=== PATIENT | female | born 1935 | race Caucasian/White ===

== ENCOUNTER → 2018-03-05 | Outpatient (CLI) | payer MEDICARE | END | disposition home or self-care (01) | LOC: WOUND 09:43 | PROVIDERS: ATTEND Podiatrist Foot & Ankle Surgery | DX: S81.801A Unspecified open wound, right lower leg, initial encounter (principal); I12.9 Hypertensive chronic kidney disease with stage 1 through stage 4 chronic kidney disease, or unspecified chronic kidney disease; N18.9 Chronic kidney disease, unspecified; J44.9 Chronic obstructive pulmonary disease, unspecified; F32.9 Major depressive disorder, single episode, unspecified; I48.91 Unspecified atrial fibrillation; E78.5 Hyperlipidemia, unspecified; G47.30 Sleep apnea, unspecified; K21.9 Gastro-esophageal reflux disease without esophagitis; M19.90 Unspecified osteoarthritis, unspecified site; Z86.718 Personal history of other venous thrombosis and embolism; Z86.711 Personal history of pulmonary embolism; X58.XXXA Exposure to other specified factors, initial encounter; Y93.89 Activity, other specified; Y92.89 Other specified places as the place of occurrence of the external cause; Y99.8 Other external cause status | CPT/HCPCS: 97597; 97598; 99215 ==

== ENCOUNTER → 2018-03-09 | Outpatient (CLI) | payer MEDICARE | END | disposition home or self-care (01) | LOC: WOUND 15:21 | PROVIDERS: ATTEND Internal Medicine | DX: S81.801D Unspecified open wound, right lower leg, subsequent encounter (principal); J44.9 Chronic obstructive pulmonary disease, unspecified; K21.9 Gastro-esophageal reflux disease without esophagitis; E78.5 Hyperlipidemia, unspecified; F32.9 Major depressive disorder, single episode, unspecified; G47.30 Sleep apnea, unspecified; I48.91 Unspecified atrial fibrillation; I12.9 Hypertensive chronic kidney disease with stage 1 through stage 4 chronic kidney disease, or unspecified chronic kidney disease; N18.9 Chronic kidney disease, unspecified; Z86.718 Personal history of other venous thrombosis and embolism; Z86.711 Personal history of pulmonary embolism; X58.XXXD Exposure to other specified factors, subsequent encounter | CPT/HCPCS: 99214 ==

== ENCOUNTER → 2018-03-12 | Outpatient (CLI) | payer MEDICARE | END | disposition home or self-care (01) | LOC: WOUND 10:54 | PROVIDERS: ATTEND Podiatrist Foot & Ankle Surgery | DX: L97.213 Non-pressure chronic ulcer of right calf with necrosis of muscle (principal); I12.9 Hypertensive chronic kidney disease with stage 1 through stage 4 chronic kidney disease, or unspecified chronic kidney disease; N18.9 Chronic kidney disease, unspecified; J44.9 Chronic obstructive pulmonary disease, unspecified; K21.9 Gastro-esophageal reflux disease without esophagitis; E78.5 Hyperlipidemia, unspecified; F32.9 Major depressive disorder, single episode, unspecified; G47.30 Sleep apnea, unspecified; I48.2 Chronic atrial fibrillation; I48.1 Persistent atrial fibrillation; Z86.711 Personal history of pulmonary embolism; Z86.718 Personal history of other venous thrombosis and embolism; M19.90 Unspecified osteoarthritis, unspecified site; W19.XXXD Unspecified fall, subsequent encounter | CPT/HCPCS: 11042; 11045 ==

== ENCOUNTER → 2018-03-13 | Outpatient (CLI) | payer MEDICARE | END | disposition home or self-care (01) | LOC: WOUND 08:39 | PROVIDERS: ATTEND Family Medicine | DX: L97.213 Non-pressure chronic ulcer of right calf with necrosis of muscle (principal); J44.9 Chronic obstructive pulmonary disease, unspecified; K21.9 Gastro-esophageal reflux disease without esophagitis; E78.5 Hyperlipidemia, unspecified; F32.9 Major depressive disorder, single episode, unspecified; G47.30 Sleep apnea, unspecified; I48.91 Unspecified atrial fibrillation; I12.9 Hypertensive chronic kidney disease with stage 1 through stage 4 chronic kidney disease, or unspecified chronic kidney disease; N18.9 Chronic kidney disease, unspecified; I48.2 Chronic atrial fibrillation; Z86.718 Personal history of other venous thrombosis and embolism; Z86.711 Personal history of pulmonary embolism | CPT/HCPCS: 11043; 11046 ==

== ENCOUNTER → 2018-03-16 | Outpatient (CLI) | payer MEDICARE | END | disposition home or self-care (01) | LOC: WOUND 14:19 | PROVIDERS: ATTEND Internal Medicine | DX: L97.212 Non-pressure chronic ulcer of right calf with fat layer exposed (principal); I10 Essential (primary) hypertension; I48.1 Persistent atrial fibrillation; I48.2 Chronic atrial fibrillation; I48.91 Unspecified atrial fibrillation; E78.5 Hyperlipidemia, unspecified; G47.30 Sleep apnea, unspecified; M19.90 Unspecified osteoarthritis, unspecified site; F32.9 Major depressive disorder, single episode, unspecified; J44.9 Chronic obstructive pulmonary disease, unspecified; K21.9 Gastro-esophageal reflux disease without esophagitis; Z86.711 Personal history of pulmonary embolism; Z86.718 Personal history of other venous thrombosis and embolism | CPT/HCPCS: 99214 ==

== ENCOUNTER → 2018-03-18 | Outpatient (CLI) | payer MEDICARE | END | disposition home or self-care (01) | LOC: WOUND 13:03 | PROVIDERS: ATTEND Internal Medicine | DX: L97.212 Non-pressure chronic ulcer of right calf with fat layer exposed (principal); I12.9 Hypertensive chronic kidney disease with stage 1 through stage 4 chronic kidney disease, or unspecified chronic kidney disease; N18.9 Chronic kidney disease, unspecified; I48.2 Chronic atrial fibrillation; I48.1 Persistent atrial fibrillation; E78.5 Hyperlipidemia, unspecified; G47.30 Sleep apnea, unspecified; M19.90 Unspecified osteoarthritis, unspecified site; J44.9 Chronic obstructive pulmonary disease, unspecified; F32.9 Major depressive disorder, single episode, unspecified; K21.9 Gastro-esophageal reflux disease without esophagitis; Z86.718 Personal history of other venous thrombosis and embolism; Z86.711 Personal history of pulmonary embolism | CPT/HCPCS: 99214 ==

== ENCOUNTER → 2018-03-20 | Outpatient (CLI) | payer MEDICARE | END | disposition home or self-care (01) | LOC: WOUND 08:35 | PROVIDERS: ATTEND Family Medicine | DX: L97.212 Non-pressure chronic ulcer of right calf with fat layer exposed (principal); J44.9 Chronic obstructive pulmonary disease, unspecified; K21.9 Gastro-esophageal reflux disease without esophagitis; E78.5 Hyperlipidemia, unspecified; F32.9 Major depressive disorder, single episode, unspecified; G47.30 Sleep apnea, unspecified; I48.91 Unspecified atrial fibrillation; I12.9 Hypertensive chronic kidney disease with stage 1 through stage 4 chronic kidney disease, or unspecified chronic kidney disease; N18.9 Chronic kidney disease, unspecified; I48.2 Chronic atrial fibrillation; M19.90 Unspecified osteoarthritis, unspecified site; Z86.718 Personal history of other venous thrombosis and embolism; Z86.711 Personal history of pulmonary embolism | CPT/HCPCS: 11042; 11045 ==

== ENCOUNTER → 2018-03-27 | Outpatient (CLI) | payer MEDICARE | END | disposition home or self-care (01) | LOC: WOUND 08:28 | PROVIDERS: ATTEND Family Medicine | DX: L97.212 Non-pressure chronic ulcer of right calf with fat layer exposed (principal); J44.9 Chronic obstructive pulmonary disease, unspecified; K21.9 Gastro-esophageal reflux disease without esophagitis; E78.5 Hyperlipidemia, unspecified; F32.9 Major depressive disorder, single episode, unspecified; G47.30 Sleep apnea, unspecified; I12.9 Hypertensive chronic kidney disease with stage 1 through stage 4 chronic kidney disease, or unspecified chronic kidney disease; N18.9 Chronic kidney disease, unspecified; I48.2 Chronic atrial fibrillation; I48.1 Persistent atrial fibrillation; M19.90 Unspecified osteoarthritis, unspecified site; Z86.711 Personal history of pulmonary embolism; Z86.718 Personal history of other venous thrombosis and embolism | CPT/HCPCS: 11042; 11045 ==

== ENCOUNTER → 2018-04-03 | Outpatient (CLI) | payer MEDICARE | END | disposition home or self-care (01) | LOC: WOUND 08:25 | PROVIDERS: ATTEND Family Medicine | DX: L97.213 Non-pressure chronic ulcer of right calf with necrosis of muscle (principal); J44.9 Chronic obstructive pulmonary disease, unspecified; K21.9 Gastro-esophageal reflux disease without esophagitis; E78.5 Hyperlipidemia, unspecified; F32.9 Major depressive disorder, single episode, unspecified; G47.30 Sleep apnea, unspecified; I12.9 Hypertensive chronic kidney disease with stage 1 through stage 4 chronic kidney disease, or unspecified chronic kidney disease; N18.9 Chronic kidney disease, unspecified; I48.2 Chronic atrial fibrillation; I48.1 Persistent atrial fibrillation; M19.90 Unspecified osteoarthritis, unspecified site; Z86.711 Personal history of pulmonary embolism; Z86.718 Personal history of other venous thrombosis and embolism | CPT/HCPCS: 11043; 11046 ==

== ENCOUNTER → 2018-04-10 | Outpatient (CLI) | payer MEDICARE | END | disposition home or self-care (01) | LOC: WOUND 09:30 | PROVIDERS: ATTEND Family Medicine | DX: L97.212 Non-pressure chronic ulcer of right calf with fat layer exposed (principal); I13.10 Hypertensive heart and chronic kidney disease without heart failure, with stage 1 through stage 4 chronic kidney disease, or unspecified chronic kidney disease; N18.9 Chronic kidney disease, unspecified; I48.2 Chronic atrial fibrillation; E78.5 Hyperlipidemia, unspecified; G47.30 Sleep apnea, unspecified; I48.1 Persistent atrial fibrillation; M19.90 Unspecified osteoarthritis, unspecified site; J44.9 Chronic obstructive pulmonary disease, unspecified; F32.9 Major depressive disorder, single episode, unspecified; K21.9 Gastro-esophageal reflux disease without esophagitis; Z86.711 Personal history of pulmonary embolism; Z86.718 Personal history of other venous thrombosis and embolism | CPT/HCPCS: 11042; 11045 ==

== ENCOUNTER 2018-04-17 10:09 | Outpatient (CLI) | payer MEDICARE | END 2018-04-17 23:59 | disposition home or self-care (01) | LOC: WOUND 10:09 | PROVIDERS: ATTEND Family Medicine | DX: L97.212 Non-pressure chronic ulcer of right calf with fat layer exposed (principal); I12.9 Hypertensive chronic kidney disease with stage 1 through stage 4 chronic kidney disease, or unspecified chronic kidney disease; N18.9 Chronic kidney disease, unspecified; I48.2 Chronic atrial fibrillation; E78.5 Hyperlipidemia, unspecified; I48.1 Persistent atrial fibrillation; G47.30 Sleep apnea, unspecified; M19.90 Unspecified osteoarthritis, unspecified site; F32.9 Major depressive disorder, single episode, unspecified; J44.9 Chronic obstructive pulmonary disease, unspecified; K21.9 Gastro-esophageal reflux disease without esophagitis; Z86.711 Personal history of pulmonary embolism; Z86.718 Personal history of other venous thrombosis and embolism | CPT/HCPCS: 97597; 97598 ==

== ENCOUNTER → 2018-05-01 | Outpatient (CLI) | payer MEDICARE | END | disposition home or self-care (01) | LOC: WOUND 09:00 | PROVIDERS: ATTEND Family Medicine | DX: T81.89XD Other complications of procedures, not elsewhere classified, subsequent encounter (principal); L97.212 Non-pressure chronic ulcer of right calf with fat layer exposed; I13.10 Hypertensive heart and chronic kidney disease without heart failure, with stage 1 through stage 4 chronic kidney disease, or unspecified chronic kidney disease; N18.9 Chronic kidney disease, unspecified; I48.2 Chronic atrial fibrillation; I48.1 Persistent atrial fibrillation; E78.5 Hyperlipidemia, unspecified; G47.30 Sleep apnea, unspecified; M19.90 Unspecified osteoarthritis, unspecified site; F32.9 Major depressive disorder, single episode, unspecified; K21.9 Gastro-esophageal reflux disease without esophagitis; J44.9 Chronic obstructive pulmonary disease, unspecified; Z86.711 Personal history of pulmonary embolism; Z86.718 Personal history of other venous thrombosis and embolism; Y83.8 Other surgical procedures as the cause of abnormal reaction of the patient, or of later complication, without mention of misadventure at the time of the procedure | CPT/HCPCS: 99215 ==

== ENCOUNTER → 2018-05-08 | Outpatient (CLI) | payer MEDICARE | END | disposition home or self-care (01) | LOC: WOUND 11:02 | PROVIDERS: ATTEND Family Medicine | DX: T81.89XD Other complications of procedures, not elsewhere classified, subsequent encounter (principal); L97.815 Non-pressure chronic ulcer of other part of right lower leg with muscle involvement without evidence of necrosis; I12.9 Hypertensive chronic kidney disease with stage 1 through stage 4 chronic kidney disease, or unspecified chronic kidney disease; N18.9 Chronic kidney disease, unspecified; I48.1 Persistent atrial fibrillation; I48.2 Chronic atrial fibrillation; E78.5 Hyperlipidemia, unspecified; G47.30 Sleep apnea, unspecified; M19.90 Unspecified osteoarthritis, unspecified site; J44.9 Chronic obstructive pulmonary disease, unspecified; F32.9 Major depressive disorder, single episode, unspecified; K21.9 Gastro-esophageal reflux disease without esophagitis; Z86.711 Personal history of pulmonary embolism; Z86.718 Personal history of other venous thrombosis and embolism; Y83.8 Other surgical procedures as the cause of abnormal reaction of the patient, or of later complication, without mention of misadventure at the time of the procedure | CPT/HCPCS: 99215 ==

== ENCOUNTER 2018-05-15 09:06 | Outpatient (CLI) | payer MEDICARE | END 2018-05-15 23:59 | disposition home or self-care (01) | LOC: WOUND 09:06 | PROVIDERS: ATTEND Family Medicine | DX: T81.89XD Other complications of procedures, not elsewhere classified, subsequent encounter (principal); L97.215 Non-pressure chronic ulcer of right calf with muscle involvement without evidence of necrosis; I82.501 Chronic embolism and thrombosis of unspecified deep veins of right lower extremity; I13.10 Hypertensive heart and chronic kidney disease without heart failure, with stage 1 through stage 4 chronic kidney disease, or unspecified chronic kidney disease; N18.9 Chronic kidney disease, unspecified; I48.1 Persistent atrial fibrillation; I48.2 Chronic atrial fibrillation; E78.5 Hyperlipidemia, unspecified; G47.30 Sleep apnea, unspecified; M19.90 Unspecified osteoarthritis, unspecified site; J44.9 Chronic obstructive pulmonary disease, unspecified; F32.9 Major depressive disorder, single episode, unspecified; K21.9 Gastro-esophageal reflux disease without esophagitis; Z86.711 Personal history of pulmonary embolism; Y83.8 Other surgical procedures as the cause of abnormal reaction of the patient, or of later complication, without mention of misadventure at the time of the procedure | CPT/HCPCS: 97597; 97598 ==

== ENCOUNTER 2018-05-22 08:24 | Outpatient (CLI) | payer MEDICARE | END 2018-05-22 23:59 | disposition home or self-care (01) | LOC: WOUND 08:24 | PROVIDERS: ATTEND Family Medicine | DX: L97.212 Non-pressure chronic ulcer of right calf with fat layer exposed (principal); I12.9 Hypertensive chronic kidney disease with stage 1 through stage 4 chronic kidney disease, or unspecified chronic kidney disease; N18.9 Chronic kidney disease, unspecified; I48.1 Persistent atrial fibrillation; I48.2 Chronic atrial fibrillation; E78.5 Hyperlipidemia, unspecified; G47.30 Sleep apnea, unspecified; M19.90 Unspecified osteoarthritis, unspecified site; J44.9 Chronic obstructive pulmonary disease, unspecified; F32.9 Major depressive disorder, single episode, unspecified; K21.9 Gastro-esophageal reflux disease without esophagitis; Z86.718 Personal history of other venous thrombosis and embolism; Z86.711 Personal history of pulmonary embolism | CPT/HCPCS: 11042; 11045 ==

== ENCOUNTER 2018-05-29 08:27 | Outpatient (CLI) | payer MEDICARE | END 2018-05-29 23:59 | disposition home or self-care (01) | LOC: WOUND 08:27 | PROVIDERS: ATTEND Family Medicine | DX: L97.212 Non-pressure chronic ulcer of right calf with fat layer exposed (principal); I48.2 Chronic atrial fibrillation; K21.9 Gastro-esophageal reflux disease without esophagitis; E78.5 Hyperlipidemia, unspecified; G47.30 Sleep apnea, unspecified; M19.90 Unspecified osteoarthritis, unspecified site; I12.9 Hypertensive chronic kidney disease with stage 1 through stage 4 chronic kidney disease, or unspecified chronic kidney disease; N18.9 Chronic kidney disease, unspecified; F32.9 Major depressive disorder, single episode, unspecified; Z98.49 Cataract extraction status, unspecified eye; Z86.711 Personal history of pulmonary embolism; Z86.718 Personal history of other venous thrombosis and embolism | CPT/HCPCS: 11042; 11045 ==

== ENCOUNTER → 2018-06-05 | Outpatient (CLI) | payer MEDICARE ==
[~2018-06-05] MED LIST: ATOR40TA78 PO; DOCU-131 PO; FLEC50TA25 PO; METO25TA35 PO; OMEG-14 PO; OMEP40CA6 PO; OXYB5TAB7 PO; TRAZ50TA66 PO; WARF-36 PO
== END | disposition home or self-care (01) ==
LOC: WOUND 09:56
PROVIDERS: ATTEND Family Medicine
DX: L97.212 Non-pressure chronic ulcer of right calf with fat layer exposed (principal); I12.9 Hypertensive chronic kidney disease with stage 1 through stage 4 chronic kidney disease, or unspecified chronic kidney disease; N18.9 Chronic kidney disease, unspecified; I48.1 Persistent atrial fibrillation; I48.2 Chronic atrial fibrillation; E78.5 Hyperlipidemia, unspecified; G47.30 Sleep apnea, unspecified; F32.9 Major depressive disorder, single episode, unspecified; M19.90 Unspecified osteoarthritis, unspecified site; J44.9 Chronic obstructive pulmonary disease, unspecified; K21.9 Gastro-esophageal reflux disease without esophagitis; Z86.711 Personal history of pulmonary embolism; Z86.718 Personal history of other venous thrombosis and embolism
CPT/HCPCS: 11042

== ENCOUNTER 2018-06-19 13:25 | Outpatient (CLI) | payer MEDICARE | END 2018-06-19 23:59 | disposition home or self-care (01) | LOC: WOUND 13:25 | PROVIDERS: ATTEND Family Medicine | DX: L97.212 Non-pressure chronic ulcer of right calf with fat layer exposed (principal); I13.10 Hypertensive heart and chronic kidney disease without heart failure, with stage 1 through stage 4 chronic kidney disease, or unspecified chronic kidney disease; N18.3 Chronic kidney disease, stage 3 (moderate); I48.0 Paroxysmal atrial fibrillation; I48.1 Persistent atrial fibrillation; I48.2 Chronic atrial fibrillation; K21.9 Gastro-esophageal reflux disease without esophagitis; E78.5 Hyperlipidemia, unspecified; M19.90 Unspecified osteoarthritis, unspecified site; J44.9 Chronic obstructive pulmonary disease, unspecified; M81.0 Age-related osteoporosis without current pathological fracture; G47.33 Obstructive sleep apnea (adult) (pediatric); F32.9 Major depressive disorder, single episode, unspecified; Z86.718 Personal history of other venous thrombosis and embolism; Z79.01 Long term (current) use of anticoagulants; Z86.711 Personal history of pulmonary embolism | CPT/HCPCS: 97597 ==

== ENCOUNTER → 2018-06-26 | Outpatient (CLI) | payer MEDICARE | END | disposition home or self-care (01) | LOC: WOUND 13:00 | PROVIDERS: ATTEND Family Medicine | DX: L97.212 Non-pressure chronic ulcer of right calf with fat layer exposed (principal); I13.10 Hypertensive heart and chronic kidney disease without heart failure, with stage 1 through stage 4 chronic kidney disease, or unspecified chronic kidney disease; N18.3 Chronic kidney disease, stage 3 (moderate); I48.0 Paroxysmal atrial fibrillation; I48.1 Persistent atrial fibrillation; I48.2 Chronic atrial fibrillation; E78.5 Hyperlipidemia, unspecified; G47.33 Obstructive sleep apnea (adult) (pediatric); M19.90 Unspecified osteoarthritis, unspecified site; J44.9 Chronic obstructive pulmonary disease, unspecified; M81.0 Age-related osteoporosis without current pathological fracture; K21.9 Gastro-esophageal reflux disease without esophagitis; F32.9 Major depressive disorder, single episode, unspecified; Z79.01 Long term (current) use of anticoagulants; Z86.711 Personal history of pulmonary embolism; Z86.718 Personal history of other venous thrombosis and embolism | CPT/HCPCS: 11042 ==

== ENCOUNTER → 2018-07-03 | Outpatient (CLI) | payer MEDICARE | END | disposition home or self-care (01) | LOC: WOUND 13:21 | PROVIDERS: ATTEND Family Medicine | DX: L97.212 Non-pressure chronic ulcer of right calf with fat layer exposed (principal); I13.10 Hypertensive heart and chronic kidney disease without heart failure, with stage 1 through stage 4 chronic kidney disease, or unspecified chronic kidney disease; N18.9 Chronic kidney disease, unspecified; I48.0 Paroxysmal atrial fibrillation; I48.1 Persistent atrial fibrillation; I48.2 Chronic atrial fibrillation; E78.5 Hyperlipidemia, unspecified; M19.90 Unspecified osteoarthritis, unspecified site; K21.9 Gastro-esophageal reflux disease without esophagitis; J44.9 Chronic obstructive pulmonary disease, unspecified; M81.0 Age-related osteoporosis without current pathological fracture; F32.9 Major depressive disorder, single episode, unspecified; G47.33 Obstructive sleep apnea (adult) (pediatric); Z86.711 Personal history of pulmonary embolism; Z79.01 Long term (current) use of anticoagulants; Z86.718 Personal history of other venous thrombosis and embolism | CPT/HCPCS: 97597 ==

== ENCOUNTER → 2018-07-10 | Outpatient (CLI) | payer MEDICARE | END | disposition home or self-care (01) | LOC: WOUND 13:57 | PROVIDERS: ATTEND Family Medicine | DX: L97.212 Non-pressure chronic ulcer of right calf with fat layer exposed (principal); I13.10 Hypertensive heart and chronic kidney disease without heart failure, with stage 1 through stage 4 chronic kidney disease, or unspecified chronic kidney disease; N18.9 Chronic kidney disease, unspecified; I48.2 Chronic atrial fibrillation; E78.5 Hyperlipidemia, unspecified; M19.90 Unspecified osteoarthritis, unspecified site; K21.9 Gastro-esophageal reflux disease without esophagitis; J44.9 Chronic obstructive pulmonary disease, unspecified; M81.0 Age-related osteoporosis without current pathological fracture; F32.9 Major depressive disorder, single episode, unspecified; G47.33 Obstructive sleep apnea (adult) (pediatric); Z86.711 Personal history of pulmonary embolism; Z79.01 Long term (current) use of anticoagulants; Z86.718 Personal history of other venous thrombosis and embolism | CPT/HCPCS: 97597 ==

== ENCOUNTER → 2018-07-17 | Outpatient (CLI) | payer MEDICARE | END | disposition home or self-care (01) | LOC: WOUND 11:00 | PROVIDERS: ATTEND Family Medicine | DX: L97.212 Non-pressure chronic ulcer of right calf with fat layer exposed (principal); I13.10 Hypertensive heart and chronic kidney disease without heart failure, with stage 1 through stage 4 chronic kidney disease, or unspecified chronic kidney disease; N18.9 Chronic kidney disease, unspecified; I48.2 Chronic atrial fibrillation; E78.5 Hyperlipidemia, unspecified; M19.90 Unspecified osteoarthritis, unspecified site; K21.9 Gastro-esophageal reflux disease without esophagitis; J44.9 Chronic obstructive pulmonary disease, unspecified; M81.0 Age-related osteoporosis without current pathological fracture; F32.9 Major depressive disorder, single episode, unspecified; G47.33 Obstructive sleep apnea (adult) (pediatric); Z86.711 Personal history of pulmonary embolism; Z79.01 Long term (current) use of anticoagulants; Z86.718 Personal history of other venous thrombosis and embolism | CPT/HCPCS: 97597 ==

== ENCOUNTER 2018-07-24 11:01 | Outpatient (CLI) | payer MEDICARE | END 2018-07-24 23:59 | disposition home or self-care (01) | LOC: WOUND 11:01 | PROVIDERS: ATTEND Family Medicine | DX: L97.212 Non-pressure chronic ulcer of right calf with fat layer exposed (principal); I82.501 Chronic embolism and thrombosis of unspecified deep veins of right lower extremity; I13.10 Hypertensive heart and chronic kidney disease without heart failure, with stage 1 through stage 4 chronic kidney disease, or unspecified chronic kidney disease; N18.3 Chronic kidney disease, stage 3 (moderate); I48.0 Paroxysmal atrial fibrillation; I48.1 Persistent atrial fibrillation; I48.2 Chronic atrial fibrillation; E78.5 Hyperlipidemia, unspecified; G47.33 Obstructive sleep apnea (adult) (pediatric); M19.90 Unspecified osteoarthritis, unspecified site; J44.9 Chronic obstructive pulmonary disease, unspecified; K21.9 Gastro-esophageal reflux disease without esophagitis; M81.0 Age-related osteoporosis without current pathological fracture; F32.9 Major depressive disorder, single episode, unspecified; Z79.01 Long term (current) use of anticoagulants; Z86.711 Personal history of pulmonary embolism | CPT/HCPCS: 11042 ==

== ENCOUNTER 2018-07-27 10:10 | Emergency (ER) | payer MEDICARE ==
[~2018-07-27] VITALS: Ht 160 cm; Wt 76.0 kg
[2018-07-27] MEDS ORDERED: [UNRECOGNIZED DRUG - OTHER] (10:37)
[2018-07-27] MEDS ORDERED: UMEC1DIS INH (10:38)
--- NOTE | 2018-07-27 10:41 | NUR ---
PT TO ED FOR GAGGING DURING BRUSHING TEETH THAT CAUSED NAUSEA THIS AM. PT REPORTS NO VOMITING, BUT COUGHING UP THICK MUCOUS. CONNECTED TO MONITORS. VSS. EDMD PRESENT FOR ASSESSMENT. AWAITING ORDERS.
[2018-07-27] MEDS ORDERED: ONDANSETRON 2MG/ML, 2ML ONE (10:59)
[2018-07-27] MEDS ORDERED: ONDANSETRON 2MG/ML, 2ML IVPush ONE (11:00)
[2018-07-27] MEDS ORDERED: SODIUM CHLORIDE FLUSH 10ML SYR IVF ONE (11:00)
[2018-07-27 11:19] LABS: BASOPHILS # (AUTO) 0.05 x10^3/uL (0-0.1); BASOPHILS % (AUTO) 0 % (0-1); EOSINOPHILS # (AUTO) 0.02 x10^3/uL (0-0.4); EOSINOPHILS % (AUTO) 0 % (1-7); LYMPHOCYTES # (AUTO) 0.89 x10^3/uL (1-3.4); LYMPHOCYTES % (AUTO) 7 % (22-44); MD NO; MEAN CORPUSCULAR HEMOGLOBIN 30.4 pg (27.0-34.8); MEAN CORPUSCULAR HGB CONC 33.7 g/dL (32.4-35.8); MEAN CORPUSCULAR VOLUME 90.3 fL (80-100); MEAN PLATELET VOLUME 8.1 fL (7.4-10.4); MONOCYTES # (AUTO) 0.72 x10^3/uL (0.2-0.8); MONOCYTES % (AUTO) 6 % (2-9); NEUTROPHILS # (AUTO) 10.64 x10^3/uL (1.8-6.8); NEUTROPHILS % (AUTO) 86 % (42-75); PLATELET COUNT 245 x10^3/uL (130-400); RED BLOOD COUNT 4.73 x10^6/uL (3.82-5.3)
[2018-07-27 11:26] LABS: INTERNATIONAL NORMALIZED RATIO 2.65 (0.93-1.1); PROTHROMBIN TIME 26.8 Seconds (9.6-11.5)
--- NOTE | 2018-07-27 11:28 | NUR ---
IV ESTABLISHED. LABS AND BC X2 COLLECTED AND SENT. XR COMPLETE. PT MEDICATED PER MAR. PT UP TO RR WITH STEADY GAIT. TECH PRESENT FOR ASSISTANCE. VSS. AWAITING RESULTS AT THIS TIME.
[2018-07-27 11:30] LABS: ALANINE AMINOTRANSFERASE 23 U/L (12-78); ALBUMIN 3.5 g/dL (3.4-5.0); CALCIUM 10.4 mg/dL (8.5-10.1); CHLORIDE 103 mmol/L (98-107); CREATININE 1.38 mg/dL (0.55-1.02)
[2018-07-27 12:08] LABS: ALKALINE PHOSPHATASE 63 U/L (45-117); ANION GAP 7 mmol/L (5-15); BILIRUBIN,TOTAL 0.5 mg/dL (0.2-1.0); TROPONIN I < 0.015 ng/mL (0.000-0.045)
[2018-07-27 12:14] LABS: TOTAL PROTEIN 6.8 g/dL (6.4-8.2)
--- NOTE | 2018-07-27 12:25 | NUR ---
PT RESTING IN ROOM WITH FAMILY AT BEDSIDE. VSS. NO NEEDS EXPRESSED. CALL LIGHT WITHIN REACH. AWAITING CT.
--- NOTE | 2018-07-27 12:50 | NUR ---
pt to ct
[2018-07-27] MEDS ORDERED: OMNIPAQUE 350 MG/ML, 75ML BOTTLE ONE (13:15)
[2018-07-27 13:35] VITALS: BP 124/54
--- NOTE | 2018-07-27 13:36 | NUR ---
PT RESTING WITH EYES CLOSED ADN LIGHTS DIMMED. AT BEDSIDE. VSS. AWAITING CT RESUTLS. CALL LIGHT WITHIN REACH.
--- NOTE | 2018-07-27 14:10 | NUR ---
all results back at this time. chart up for recheck.
--- NOTE | 2018-07-27 14:19 | NUR ---
edmd to bs to update on poc. awaiting dispo.
== END 2018-07-27 15:02 | disposition home or self-care (01) ==
LOC: ED 12:10
DX: R06.00 Dyspnea, unspecified (principal); R11.10 Vomiting, unspecified; I48.91 Unspecified atrial fibrillation; I10 Essential (primary) hypertension; J44.9 Chronic obstructive pulmonary disease, unspecified
CPT/HCPCS: 36415; 71045; 71260; 80053; 83605; 83735; 83880; 84484; 85025; 85610; 87040; 93005; 96374; 99284; J2405; Q9967

== ENCOUNTER 2018-07-31 10:37 | Outpatient (CLI) | payer MEDICARE ==
[~2018-07-31 10:37] MED LIST changes: +UMEC1DIS INH; +[UNRECOGNIZED DRUG - OTHER]
== END 2018-07-31 23:59 | disposition home or self-care (01) ==
LOC: WOUND 10:37
PROVIDERS: ATTEND Family Medicine
DX: L97.212 Non-pressure chronic ulcer of right calf with fat layer exposed (principal); I82.501 Chronic embolism and thrombosis of unspecified deep veins of right lower extremity; I13.10 Hypertensive heart and chronic kidney disease without heart failure, with stage 1 through stage 4 chronic kidney disease, or unspecified chronic kidney disease; N18.3 Chronic kidney disease, stage 3 (moderate); I48.0 Paroxysmal atrial fibrillation; I48.1 Persistent atrial fibrillation; I48.2 Chronic atrial fibrillation; E78.5 Hyperlipidemia, unspecified; G47.33 Obstructive sleep apnea (adult) (pediatric); M19.90 Unspecified osteoarthritis, unspecified site; J44.9 Chronic obstructive pulmonary disease, unspecified; K21.9 Gastro-esophageal reflux disease without esophagitis; M81.0 Age-related osteoporosis without current pathological fracture; F32.9 Major depressive disorder, single episode, unspecified; Z79.01 Long term (current) use of anticoagulants; Z86.711 Personal history of pulmonary embolism
CPT/HCPCS: G0463

== ENCOUNTER → 2018-08-07 | Outpatient (CLI) | payer MEDICARE | END | disposition home or self-care (01) | LOC: WOUND 10:22 | PROVIDERS: ATTEND Family Medicine | DX: L97.212 Non-pressure chronic ulcer of right calf with fat layer exposed (principal); I13.0 Hypertensive heart and chronic kidney disease with heart failure and stage 1 through stage 4 chronic kidney disease, or unspecified chronic kidney disease; N18.3 Chronic kidney disease, stage 3 (moderate); I50.9 Heart failure, unspecified; I82.501 Chronic embolism and thrombosis of unspecified deep veins of right lower extremity; I48.0 Paroxysmal atrial fibrillation; I48.1 Persistent atrial fibrillation; I48.2 Chronic atrial fibrillation; E78.5 Hyperlipidemia, unspecified; G47.33 Obstructive sleep apnea (adult) (pediatric); M19.90 Unspecified osteoarthritis, unspecified site; M81.0 Age-related osteoporosis without current pathological fracture; J44.9 Chronic obstructive pulmonary disease, unspecified; K21.9 Gastro-esophageal reflux disease without esophagitis; F32.9 Major depressive disorder, single episode, unspecified; Z79.01 Long term (current) use of anticoagulants; Z86.711 Personal history of pulmonary embolism | CPT/HCPCS: 97597 ==

== ENCOUNTER → 2018-08-14 | Outpatient (CLI) | payer MEDICARE | END | disposition home or self-care (01) | LOC: WOUND 09:18 | PROVIDERS: ATTEND Family Medicine | DX: L97.212 Non-pressure chronic ulcer of right calf with fat layer exposed (principal); I82.501 Chronic embolism and thrombosis of unspecified deep veins of right lower extremity; I13.10 Hypertensive heart and chronic kidney disease without heart failure, with stage 1 through stage 4 chronic kidney disease, or unspecified chronic kidney disease; N18.3 Chronic kidney disease, stage 3 (moderate); I48.0 Paroxysmal atrial fibrillation; I48.1 Persistent atrial fibrillation; I48.2 Chronic atrial fibrillation; E78.5 Hyperlipidemia, unspecified; G47.30 Sleep apnea, unspecified; G47.33 Obstructive sleep apnea (adult) (pediatric); M19.90 Unspecified osteoarthritis, unspecified site; J44.9 Chronic obstructive pulmonary disease, unspecified; K21.9 Gastro-esophageal reflux disease without esophagitis; M81.0 Age-related osteoporosis without current pathological fracture; F32.9 Major depressive disorder, single episode, unspecified; Z79.01 Long term (current) use of anticoagulants; Z86.711 Personal history of pulmonary embolism | CPT/HCPCS: G0463 ==

== ENCOUNTER 2020-09-18 19:24 | Emergency (ER) | payer MEDICARE ==
[~2020-09-18] VITALS: Ht 161.3 cm; Wt 80.0 kg
[~2020-09-18 19:24] MED LIST changes: +ATORVASTATIN PO; -OMEP40CA6 PO; +OMEP40CA8 PO; +OXYB5TAB10 PO; -OXYB5TAB7 PO
[2020-09-18 20:16] LABS: BASOPHILS % (AUTO) 1 % (0-1); EOSINOPHILS % (AUTO) 1 % (1-7); LYMPHOCYTES % (AUTO) 11 % (22-44); MEAN CORPUSCULAR HEMOGLOBIN 30.7 pg (27.0-34.8); MEAN CORPUSCULAR HGB CONC 33.6 g/dL (32.4-35.8); MEAN PLATELET VOLUME 7.4 fL (7.4-10.4); MONOCYTES % (AUTO) 8 % (2-9); NEUTROPHILS % (AUTO) 79 % (42-75); PLATELET COUNT 191 x10^3/uL (130-400); RED BLOOD COUNT 4.67 x10^6/uL (3.82-5.3); RED CELL DISTRIBUTION WIDTH 14.3 % (9.6-15.2)
[2020-09-18 20:27] LABS: ALBUMIN 3.5 g/dL (3.4-5.0); ANION GAP 8 mmol/L (5-15); CHLORIDE 104 mmol/L (98-107); CREATININE 1.17 mg/dL (0.55-1.02)
[2020-09-18 20:28] LABS: INTERNATIONAL NORMALIZED RATIO 2.84 (0.93-1.1); PROTHROMBIN TIME 29.8 Seconds (9.6-11.5)
--- NOTE | 2020-09-18 23:29 | NUR ---
called in the lobby. no answer.
[2020-09-19 00:55] VITALS: BP 123/81
== END 2020-09-19 00:58 | disposition home or self-care (01) ==
LOC: ED 09-19
DX: L03.116 Cellulitis of left lower limb (principal); L03.115 Cellulitis of right lower limb; B97.0 Adenovirus as the cause of diseases classified elsewhere; L03.031 Cellulitis of right toe; Z16.29 Resistance to other single specified antibiotic; I10 Essential (primary) hypertension; I48.91 Unspecified atrial fibrillation; J44.9 Chronic obstructive pulmonary disease, unspecified
CPT/HCPCS: 36415; 80048; 82040; 83605; 85025; 85610; 85730; 93970; 99284

== ENCOUNTER 2020-12-18 18:38 | Emergency (ER) | payer MEDICARE ==
[~2020-12-18] VITALS: Ht 160 cm; Wt 77.9 kg
[2020-12-18 19:12] LABS: BASOPHILS % (AUTO) 1 % (0-1); EOSINOPHILS % (AUTO) 2 % (1-7); LYMPHOCYTES % (AUTO) 31 % (22-44); MEAN CORPUSCULAR HEMOGLOBIN 30.9 pg (27.0-34.8); MEAN CORPUSCULAR HGB CONC 33.7 g/dL (32.4-35.8); MEAN PLATELET VOLUME 7.4 fL (7.4-10.4); MONOCYTES % (AUTO) 9 % (2-9); NEUTROPHILS % (AUTO) 57 % (42-75); PLATELET COUNT 218 x10^3/uL (130-400); RED BLOOD COUNT 4.59 x10^6/uL (3.82-5.3); RED CELL DISTRIBUTION WIDTH 14.3 % (9.6-15.2)
[2020-12-18 19:23] LABS: ALANINE AMINOTRANSFERASE 24 U/L (12-78); ALBUMIN 3.3 g/dL (3.4-5.0); ANION GAP 4 mmol/L (5-15); CHLORIDE 104 mmol/L (98-107); CREATININE 1.28 mg/dL (0.55-1.02)
[2020-12-18 19:34] LABS: ALKALINE PHOSPHATASE 63 U/L (45-117); BILIRUBIN,TOTAL 0.5 mg/dL (0.2-1.0); TOTAL PROTEIN 7.4 g/dL (6.4-8.2); TROPONIN I < 0.015 ng/mL (0.000-0.045)
--- NOTE | 2020-12-18 20:05 | NUR ---
pt to room from lobby
--- NOTE | 2020-12-18 20:15 | NUR ---
Assist RN: first contact with patient. Patient presents to ER c/o HTN this am along with dizziness, feeling hot, and epigastric pain which patient describes as "feels like GERD." This episode lasted from 0600 to 1100 and resolved. Patient then experienced a similar episode again around 1800 and decided to come in. Patient has a hx of afib which is controlled by meds. Patient is in NAD. Respirations even and unlabored. Has no complaints now.
[2020-12-18 20:19] VITALS: BP 172/73
--- NOTE | 2020-12-18 21:34 | NUR ---
Patient given discharge instructions and they have confirmed that they understand the instructions. Patient ambulatory with steady gait. NAD, all questions answered appropriately, denies additional needs at this time. No personal belongings left in room after discharge.
== END 2020-12-18 21:36 | disposition home or self-care (01) ==
LOC: ED 19:00
DX: R00.2 Palpitations (principal); K44.9 Diaphragmatic hernia without obstruction or gangrene; I12.9 Hypertensive chronic kidney disease with stage 1 through stage 4 chronic kidney disease, or unspecified chronic kidney disease; N18.9 Chronic kidney disease, unspecified; K21.9 Gastro-esophageal reflux disease without esophagitis; I48.91 Unspecified atrial fibrillation
CPT/HCPCS: 36415; 71045; 80053; 83735; 84436; 84443; 84484; 85025; 93005; 99285